=== PATIENT | male | born 1930 | race Caucasian/White ===

== ENCOUNTER 2017-08-26 11:40 | Outpatient (CLI) | payer MEDICARE, OTHER ==
--- NOTE | 2017-08-26 15:20 | XRAY Report ---
TWO VIEW CHEST: 08/26/2017 CLINICAL INDICATION: Asthma. COMPARISON: 12/07/2015. FINDINGS: Frontal and lateral views of the chest demonstrate a normal cardiac silhouette. The lungs remain clear. No effusion or pneumothorax is present. IMPRESSION: NO EVIDENCE OF ACUTE CARDIOPULMONARY DISEASE. NO SIGNIFICANT INTERVAL CHANGE. TD: 08/26/2017 15:19
== END 2017-08-26 11:41 | disposition home or self-care (01) ==
LOC: DI.N 11:40
PROVIDERS: ATTEND Internal Medicine
DX: J45.909 Unspecified asthma, uncomplicated (principal)
CPT/HCPCS: 71046

== ENCOUNTER 2017-08-27 08:21 | Outpatient (CLI) | payer MEDICARE, OTHER ==
[2017-08-27] MEDS ORDERED: IOPAMIDOL-300 100 ML VIAL ONE (08:32)
[2017-08-27] MEDS ORDERED: IOPAMIDOL-300 100 ML VIAL IVP ONE (09:16)
--- NOTE | 2017-08-27 13:41 | CT Report ---
EXAM: CT SOFT TISSUE NECK WITH CONTRAST. EXAM DATE: 08/27/2017 08:54 AM. HISTORY: Right vocal cord paresis. Cough. Hoarseness. COMPARISONS: None. TECHNIQUE: Routine soft tissue neck CT protocol. Reconstructions: Coronal and sagittal. IV contrast: 80 cc Isovue 300. In accordance with CT protocol optimization, one or more of the following dose reduction techniques w ere utilized for this exam: automated exposure control, adjustment of mA and/or KV based on patient s ize, or use of iterative reconstructive technique. FINDINGS: Visualized Intracranial Contents: Partially visualized brain parenchyma and the floor of the middle a nd posterior cranial fossa is unremarkable. Orbits: Partially visualized inferior aspect of the orbits is unremarkable. Sinuses: Mild mucosal thickening is seen in the maxillary antra. Remainder of partially visualized pa ranasal sinuses and mastoid air cells are clear. Oral cavity and tongue: Metallic artifact from dentition partially obscures the oral cavity. The floo r of the mouth is symmetric. Pharynx : Pharyngeal mucosa is unremarkable. The infratemporal fossa, parapharyngeal spaces, and retr opharyngeal space are unremarkable. The base of the tongue is symmetric and unremarkable. The airway is patent. Larynx: Larynx and supraglottic airway are patent without mass lesion. Medial deviation of the right vocal cord is seen, consistent with vocal cord paresis. No mass is seen along the expected course of the right recurrent laryngeal nerve or vagus nerve in the thoracic inlet or neck. Note is made of arc uate calcification above the level of the right cord asymmetric compared to the left side (axial seri es 3, image 67). This could represent dystrophic calcification or possibly dislocated arytenoid carti leon The visualized trachea is unremarkable. Parotid and Submandibular Glands: Mild fatty atrophy of the right parotid gland is seen compared to t he left. There is asymmetrically prominent soft tissue in the right submandibular region lateral to the mylohy oid muscle, within the submandibular space. This is anterior to the submandibular gland but has simil ar density and enhancement compared to the submandibular gland. This measures approximately 13 x 36 x 13 mm in size. This may represent unusual accessory submandibular gland. Lymph Nodes: No enlarged lymph nodes are identified in the cervical, supraclavicular, and visualized superior mediastinal regions. Soft tissues: Soft tissues are unremarkable. No mass lesion or abnormal enhancement. Vascular Structures: Unremarkable. Thyroid Gland: Unremarkable. Lung: The visualized lung apices are clear. Bones: No evidence of acute fracture or malalignment. Spondylosis is noted throughout the cervical sp ine. Osseous fusion of facet joints is seen bilaterally at C2-C3 and C3-C4. C4-C5: Marked left-sided degenerative facet change. Mild degenerative disk change. C5-C6, C6-C7: Mild to moderate degenerative disk change. Other: None. IMPRESSION: 1. Right vocal cord paralysis. Punctate calcification is seen in the right supraglottic larynx. This may represent dystrophic calcification versus possibly dislocated arytenoid cartilage. Direct visuali zation may be of value. 2. Soft tissue density lesion in the right submandibular space beneath the mandible. This has density consistent with submandibular gland, in an anterior location relative to the submandibular gland. Th is may represent an accessory submandibular gland. 3. Mild fatty atrophy of the right parotid gland, which is asymmetric. Critical test: Findings are discussed with the referring physician, Dr. Chuck Pierce, on 08/27/2017 a t 1331 hrs. [facility] Referring Provider Line: [phone] SITE ID: [id number]
== END 2017-08-27 08:22 | disposition home or self-care (01) ==
LOC: DI 08:21
PROVIDERS: ATTEND Otolaryngology
DX: J38.01 Paralysis of vocal cords and larynx, unilateral (principal); J38.7 Other diseases of larynx; R93.8 Abnormal findings on diagnostic imaging of other specified body structures; K11.0 Atrophy of salivary gland
CPT/HCPCS: 70491; Q9967

== ENCOUNTER 2017-10-20 18:09 | Outpatient (CLI) | payer OTHER, MEDICARE | END 2017-10-20 18:10 | disposition EMS.NT | LOC: EMS 18:09 | PROVIDERS: ATTEND Surgery | DX: Z04.1 Encounter for examination and observation following transport accident (principal); V43.53XA Car driver injured in collision with pick-up truck in traffic accident, initial encounter; Y92.410 Unspecified street and highway as the place of occurrence of the external cause ==

== ENCOUNTER 2017-10-20 20:23 | Emergency (ER) | payer OTHER, MEDICARE ==
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
[2017-10-20] MEDS ORDERED: oxyCOD/ACETAMIN 5 MG/325 MG TABLET PO STA (22:07)
[2017-10-20] MEDS ORDERED: IBUPROFEN 600 MG TABLET PO STA (22:07)
[2017-10-20] MEDS ORDERED: METHOCARBAMOL 500 MG TABLET PO STA (22:08)
[2017-10-20 23:25] VITALS: BP 118/71
--- NOTE | 2017-10-20 23:30 | CT Preliminary Report ---
Exam: CT HEAD W/O IMPRESSION: Generalized age-related cortical atrophic changes without evidence of acute intracranial abnormality. [facility] SITE ID: [id number]
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
== END 2017-10-20 23:50 | disposition home or self-care (01) ==
LOC: ED 20:23
DX: S00.03XA Contusion of scalp, initial encounter (principal); V89.2XXA Person injured in unspecified motor-vehicle accident, traffic, initial encounter; I10 Essential (primary) hypertension; E78.00 Pure hypercholesterolemia, unspecified; E03.9 Hypothyroidism, unspecified
CPT/HCPCS: 70450; 99283; A9270

== ENCOUNTER 2017-12-11 08:00 | Outpatient (CLI) | payer MEDICARE, OTHER | END 2017-12-11 08:01 | disposition home or self-care (01) | LOC: LAB.N 08:00 | PROVIDERS: ATTEND Allergy & Immunology | DX: T63.451D Toxic effect of venom of hornets, accidental (unintentional), subsequent encounter (principal) | CPT/HCPCS: 36415; 81599; 83520 ==